=== PATIENT | male | born 1950 | race Caucasian/White ===

== ENCOUNTER → 2019-05-01 | Outpatient (CLI) | payer OTHER | LOC: M.RAD 12:29 | DX: M47.814 Spondylosis without myelopathy or radiculopathy, thoracic region (principal); J84.10 Pulmonary fibrosis, unspecified ==

== ENCOUNTER 2019-10-04 07:37 | Observation (INO) | payer OTHER ==
[~2019-10-04] VITALS: Ht 175.3 cm; Wt 118.4 kg
[2019-10-04] VITALS (17 sets, daily range): BP systolic 118–146; BP diastolic 60–75
--- NOTE | ~2019-10-04 | H ---
[address] [address] HISTORY AND PHYSICAL Name: ANIL GOMEZ Room: [address] Josep Jonas#: [id number] Admission: 10/04/19 Attend Phys: Gregg Piper MD, Discharge: 10/05/19 Date of : 52 Report #: [id number] THIS REPORT FOR: //name// cc: Don Ambrocio MD, David L. MD ~ THIS REPORT FOR: //name// Please refer to the History and Physical performed in the physician's office. By: [facility]2Medical Records Staff [facility] /JHOANA
[2019-10-04 08:52] LABS: HEMATOCRIT 40.8 % (42.0-52.0); HEMOGLOBIN 14.2 gm/dL (14.0-18.0); MCH 26.1 pg (26.0-34.0); MCHC 34.8 g/dL (28.0-37.0); RBC 5.44 mil/uL (4.50-6.00); RDW-CV 15.6 % (10.5-14.5)
[2019-10-04 09:01] LABS: APTT 25.9 Seconds (25.0-31.3); INR 1.1; PROTIME 11.6 Seconds (9.20-11.50)
[2019-10-04 09:03] LABS: ANION GAP 5 mmol/L (7-16); BUN 15 mg/dL (7-18); CALCIUM 8.5 mg/dL (8.5-10.1); CHLORIDE 97 mmol/L (98-107); CO2 31 mmol/L (21-32); CREATININE 1.1 mg/dL (0.6-1.3); GLUCOSE 190 mg/dL (70-99); POTASSIUM 4.4 mmol/L (3.5-5.1); SODIUM 133 mmol/L (136-145)
[2019-10-04 09:07] LABS: ALBUMIN 3.5 g/dL (3.4-5.0); ALKALINE PHOSPHATASE 93 U/L (46-116); CHOLESTEROL 176 mg/dL (<200); HDL CHOLESTEROL 32 mg/dL (>40); LDL CHOLESTEROL 98 mg/dL (<100); SERUM ASSESSMENT Clear; SGOT 19 U/L (15-37); SGPT 28 U/L (30-65); TC:HDL 5.5 Ratio (Not establshd); TOTAL BILIRUBIN 0.5 mg/dL (<0.1-1.0); TOTAL PROTEIN 6.6 g/dL (6.4-8.2); TRIGLYCERIDE 233 mg/dL (<150); VLDL 47 mg/dL (<40)
[2019-10-04] MEDS ORDERED: ABILIFY 2 MG2 M1 PO (09:18)
[2019-10-04] MEDS ORDERED: ASA81BEC PO (09:18)
[2019-10-04] MEDS ORDERED: ZYRTEC10 M5 PO (09:19)
[2019-10-04] MEDS ORDERED: CATAPRES0.2 MG PO (09:20)
[2019-10-04] MEDS ORDERED: DILTIAZEM ER180 M2 PO (09:21)
[2019-10-04] MEDS ORDERED: CYMBALTA60 MG PO (09:22)
[2019-10-04] MEDS ORDERED: GLUCOSAMINE &1 EACH PO (09:23)
[2019-10-04] MEDS ORDERED: HYDROCHLOROTHIA25 M1 PO (09:24)
[2019-10-04] MEDS ORDERED: GLUCOPHAGE500 MG PO (09:25)
[2019-10-04] MEDS ORDERED: LISINOPRIL40 MG PO (09:25)
[2019-10-04] MEDS ORDERED: LOPRESSOR50 PO (09:27)
[2019-10-04] MEDS ORDERED: NAPROSYN500 M1 PO (09:27)
[2019-10-04] MEDS ORDERED: NITROSTAT0.4 M1 SUBLING (09:30)
[2019-10-04] MEDS ORDERED: OMEPRAZOLE 20 M20 M1 PO (09:31)
[2019-10-04] MEDS ORDERED: VITAMIN D31250 MC1 PO (09:32)
--- NOTE | 2019-10-04 13:11 | EKG ---
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1950 Requested By: Gregg Piper Order Number: [id number] Yusra MD: Gregg Piper Measurements Intervals [place] Rate: 50 P: 38 WV: 188 QRS: -8 QRSD: 97 T: 45 QT: 452 QTc: 413 Interpretive Statements Sinus rhythm Abnormal R-wave progression, late transition Baseline wander in lead(s) II,III,aVF No previous ECG available for comparison Electronically Signed On 10-04-2019 13:11:33 CDT by Gregg Piper [email or web address] <ELECTRONICALLY SIGNED> By: Gregg Piper MD, [facility] 10/04/19 1311 0932 0932 Gregg Piper MD, [facility] /EPI
--- NOTE | 2019-10-04 14:07 | CARD ---
[address] [address] CARDIAC CATH REPORT Name: PATRICIA,LOSRINIVASAN Tavera Room: [address] Josep M.RDarrell#: [id number] Admission: 10/04/19 Attend Phys: Gregg Piper MD, Discharge: Date of : 52 Report #: [id number] THIS REPORT FOR: //name// cc: Don Ambrocio MD, David L. MD ~ APPROVED REPORT Study performed: 10/04/2019 09:17:09 Patient Details Patient Status: In-Patient Room #: 220 The patient is a 69 year-old male Event Personnel Gregg Piper Health Advocate, Kristyn Blanton RN Appliquer, Peggy Chau RTR Monitor, Audie Jewell RTR Scrub Procedures Performed Art Access - R femoral artery, Left Heart Cath w/or w/o Coronaries LHC, SANDRA Place w/wo Plasty Single LAD , PTCA Single Vessel CIRC PCISINGLE, Hemostasis w/ Angioseal Indication Unstable angina Risk Factors Hypercholesterolemia, Hypertension, Diabetes Admission/Lab Medications/Medications given during procedure Angiomax IV 18 ml, Angiomax Drip IV 41.51 ml per hr, Effient PO 60 mg, Aspirin PO 162 mg Procedure Narrative The patient was brought electively to the Cardiac Catheterization Laboratory and was prepped and draped in a sterile manner. The right femoral was infiltrated with 2% Lidocaine subcutaneous anesthesia. A 6F Hume sheath was inserted into the right femoral artery. Coronary angiography was performed using coronary diagnostic catheters. The right coronary system was accessed and visualized with a 6F 3DRC catheter. The left coronary system was accessed and visualized with a 6F JL5 catheter. The left ventricle was accessed and visualized with a 6F Pigtail catheter. Left ventricular/Aortic Valve gradient assessed via catheter pullback. Left ventriculogram was performed in CHAUHAN projection. Pre[place] [address] CARDIAC CATH REPORT Name: ANIL GOMEZ Room: [address]#: [id number] Admission: 10/04/19 Attend Phys: Gregg Piper MD, Discharge: Date of : 52 Report #: [id number] was performed . Closure device was deployed with a 6 Fr Angioseal STS. The patient tolerated the procedure well and there were no complications associated with the procedure. There was no hematoma. Intraoperative Conscious Sedation Sedation start time: 10:00 Case end Time: 11:51 Fentanyl 50 mcg Versed 2 mg Fluoro Time: 39.4 minutes Dose: DAP 014238 cGycm2 5501 mGy Contrast Type and Amount: Visipaque 575 ml Coronary Angiography The patient's coronary anatomy is left dominant. Diagnostic Cath Left Main 0% narrowing LAD 75% mid LAD stenosis Circumflex Large dominant vessel with 30% mid vessel narrowing widely patent mid circumflex stent and 95% distal circumflex stenosis Right Coronary Small nondominant vessel with 50% mid vessel narrowing Left Ventriculography The left ventricle is normal in size with contractility. The left ventricular ejection fraction is estimated to be 60%. Left ventricular wall motion abnormalities are not present. There is no mitral insufficiency. Hemodynamics The aortic pressure is 143/71 mmHg with a mean of 99 mmHg. The left ventricular pressure is 142/6 mmHg with a mean of mmHg. The left ventricular end diastolic pressure is 35 mmHg. There was no gradient across the aortic valve upon pullback. PCI Technique Lesion Anticoagulation was achieved with Angiomax. Patient was preloaded with Angiomax IV 18 ml. Percutaneous coronary intervention was performed on the distal circumflex artery segment. The lesion stenosis prior to intervention was 95% with EDOUARD 3 flow. A 6F JL 5.0 Guide Catheter was used to engage the lm ostium. A BMW 190cm Interventional Guidewire was used to cross the [place] [address] CARDIAC CATH REPORT Name: ANIL GOMEZ Room: [address] M.R.#: [id number] Admission: 10/04/19 Attend Phys: Gregg Piper MD, Discharge: Date of : 52 Report #: [id number] A Balloon catheter Mini Trek RX 2.0 X 8 was inserted and inflated up to 12.00atm for 9seconds. Additional Inflation: 16.00atm for 10seconds. Additional Inflation: 16.00atm for 12seconds. Final angiography reveals 20 % stenosis with EDOUARD flow. COMMENTS The PCI to the circumflex was technically complex by virtue of proximal vessel tortuosity, poor guide support, and calcified distal circumflex lesion. I was ultimately able to perform distal circumflex intervention with the use of a kendall wire PCI Technique Lesion 2 Percutaneous Coronary Intervention was performed on the mid left anterior descending artery segment. Patient was preloaded with Angiomax IV 18 ml. The lesion stenosis prior to intervention was 75% with EDOUARD 2 flow. A 6F JL 5.0 Guide Catheter was used to engage the lm ostium. A BMW 190cm Interventional Guidewire was used to cross the lesion. Stent Deployment A drug-eluting stent [place] RX Stent 2.5X12mm was inserted and inflated up to 15.00atm for 13seconds. Additional Inflation: 15.00atm for 10seconds. Final angiography reveals 0 % stenosis with EDOUARD 3 flow. Conclusion 1. Significant coronary artery disease characterized by the following: A 75% mid LAD stenosis B dominant circumflex with 30% mid vessel narrowing and 95% calcified distal stenosis C small nondominant right coronary with 50% mid vessel narrowing 2. Normal left ventricular systolic function, estimated ejection fraction 60% 3. Severe elevation of left ventricular end-diastolic pressure at rest 4. Successful PCI with deployment of drug[place] [address] CARDIAC CATH REPORT Name: ANIL GOMEZ Room: [address] Josep Jonas#: [id number] Admission: 10/04/19 Attend Phys: Gregg Piper MD, Discharge: Date of : 52 Report #: [id number] 75% mid LAD stenosis with 0% residual narrowing and EDOUARD-3 flow to the distal vessel 5. Successful PTCA at the site of 95% distal circumflex stenosis with 20% residual narrowing and EDOUARD-3 flow to the distal vessel Recommendations Cardiac Risk Reduction Program Aggressive Medical Therapy Medications Administered Aspirin (any) Prasugrel Diagnostic Cath Approved by: Gregg Piper MD Date/Time: 10/04/2019 14:05:50 <ELECTRONICALLY SIGNED> By: Gregg Piper MD, [facility] 10/04/19 1407 1407 1407Gregg Piper MD, FACC /INF
--- NOTE | 2019-10-04 15:18 | EKG ---
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1950 Requested By: Gregg Piper Order Number: [id number] Yusra MD: Gregg Piper Measurements Intervals [place] Rate: 51 P: 44 GA: 182 QRS: -15 QRSD: 95 T: 66 QT: 465 QTc: 429 Interpretive Statements Sinus rhythm Borderline left axis deviation Abnormal R-wave progression, late transition Compared to ECG 10/04/2019 09:32:52 No significant changes Electronically Signed On 10-04-2019 15:18:22 CDT by Gregg Piper [email or web address] <ELECTRONICALLY SIGNED> By: Gregg Piper MD, [facility] 10/04/19 1518 1417 1417 Gregg Piper MD, [facility] /EPI
--- NOTE | 2019-10-04 18:46 | NUR ---
PT A&OX4 VSS. PT ADMITTED TO FLOOR FROM FLOOR STEWARD/STEWARDESS, ARRIVED ON UNIT APPROX 1218. HX OF STENT PLACEMENT IN 2014. PT ARRIVES WITH GAUZE/TRANSPARENT DRESSING TO R GROIN. NO REDNESS/SWELLING/DRAINAGE NOTED. IV TO RAC WITH NS RUNNING AT 75ML/HOUR. DRESSING C/D/I, NO REDNESS/SWELLING NOTED. PT SINUS YISSEL ON MONITOR. APPROX 1515, PHYSICIAN AT BEDSIDE AND HOB ELEVATED BY PHYSICIAN. PT IS ACCUCHECK ON CARB CONTROL DIET, NO INSULIN INDICATED. PT V/S MONITORED DIRECTED. PT UP TO RESTROOM SBA GAIT STEADY THIS EVENING. PT RESTS IN ROOM WITH CALL LIGHT IN REACH, WILL CONTINUE TO MONITOR.
[2019-10-05] VITALS: BP 136/64
[2019-10-05 04:00] VITALS: BP 125/56
[2019-10-05 05:22] LABS: HEMATOCRIT 37.1 % (42.0-52.0); HEMOGLOBIN 13.4 gm/dL (14.0-18.0); MCH 26.7 pg (26.0-34.0); MCV 74.1 fL (80.0-100.0); MPV 7.3 fl. (7.2-11.1); RDW-CV 15.4 % (10.5-14.5); WBC 9.1 thou/uL (4.0-11.0)
[2019-10-05 05:41] LABS: ALBUMIN 3.2 g/dL (3.4-5.0); CALCIUM 8.2 mg/dL (8.5-10.1); CREATININE 0.9 mg/dL (0.6-1.3); TOTAL BILIRUBIN 0.7 mg/dL (<0.1-1.0); TOTAL PROTEIN 6.2 g/dL (6.4-8.2); TROPONIN-I LEVEL 0.4 ng/mL (<0.06)
[2019-10-05 08:00] VITALS: BP 121/75
[2019-10-05 10:31] VITALS: BP 121/75
[2019-10-05] MEDS ORDERED: EFFIENT10 MG PO (11:17)
[2019-10-05] MEDS ORDERED: LORATIDINE 10 M10 M1 PO (11:18)
--- NOTE | 2019-10-05 18:09 | NUR ---
ORDER RECEIVED TO DISCHAGR4 PATIENT HOME TO SELF CARE WITH SPOUSE. MED REC, MEDICATION EDUCATION, STROKE EDUCATION, AND NEED FOR FOLLOW UP APPOINTMENTSCOVERED WITH PAITNET AND STATED UNDERSTOOD. PATIENT EDUCATED REGARDING LIFTING AND ACTIVITY LIMITATION R/T CARDIAC CATH PROCEDURE. VSS AND PATIENT IN NO APPARNET SIGNS OF DISTRESS. RIGHT CARDIAC CATH GROIN SITE CLEAN DRY INTACT WITH NO S/S OF HEMATOMA. DC TIME OF 12:10.
--- NOTE | 2019-10-07 11:03 | EKG ---
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
--- NOTE | 2019-10-07 12:24 | D ---
[address] [address] DISCHARGE SUMMARY Name: ANIL GOMEZ Ayse Room: [address] Josep Jonas#: [id number] Admission: 10/04/19 Attend Phys: Gregg Piper MD, Discharge: 10/05/19 Date of : 52 Report #: [id number] THIS REPORT FOR: //name// cc: Don Ambrocio MD, David L. MD ~ THIS REPORT FOR: //name// CC: Don Piper DATE OF SERVICE: 10/05/2019 FINAL DISCHARGE DIAGNOSES: 1. Unstable angina. 2. Dyspnea on exertion. 3. Coronary artery disease. 4. Status post PCI with stenting of the mid LAD and angioplasty of the distal circumflex. 5. Hypertension. 6. Type 2 diabetes. 7. Hyperlipidemia. 8. Exogenous obesity. PROCEDURES: 10/04/2019 -- left heart catheterization, left ventriculography, selective coronary arteriography and percutaneous coronary intervention with stenting of the mid LAD and angioplasty of the distal circumflex. HOSPITAL COURSE: The patient is a very pleasant 69-year-old male with coronary artery disease, status post remote stenting of the circumflex. Recently, he has noted recrudescence of symptoms typical of his prior angina with marked dyspnea on minimal exertion such as tying his shoes or walking short distances. This was present in the past before his prior PCI. He has underlying hypertension, diabetes and hyperlipidemia as well as exogenous obesity. In this context, I performed cardiac catheterization on 10/04/2019 which revealed a 90% distal circumflex stenosis and 75% tubular mid LAD stenosis. I performed stenting of the mid LAD with 0% residual narrowing and angioplasty of the smaller distal circumflex with 20% residual narrowing. The patient did well post-procedurally. There was no chest pain post-procedurally. Troponin leonard up to 0.40 and insignificant post-procedural elevation. LABORATORY DATA: Additional lab revealed sodium 135, potassium 4.0, BUN 11, creatinine 0.9, glucose 152. Hemoglobin 13.4, white blood cell count 9100 with 310,000 [place] [address] DISCHARGE SUMMARY Name: ANIL GOMEZ Ayse Room: [address] Sumi#: [id number] Admission: 10/04/19 Attend Phys: Gregg Piper MD, Discharge: 10/05/19 Date of : 52 Report #: [id number] He ambulated in the hallways without difficulty and there was good hemostasis at the right femoral site of catheterization. DISCHARGE MEDICATIONS: He was discharged to home on the following medications: Aripiprazole 2 mg daily, aspirin 81 mg b.i.d., cetirizine 10 mg daily, cholecalciferol or vitamin D3 5000 units daily, clonidine 0.2 mg t.i.d., diltiazem extended release 180 mg b.i.d., duloxetine or Cymbalta 60 mg b.i.d., glucosamine/chondroitin 2 capsules daily, hydrochlorothiazide 25 mg daily, lisinopril 40 mg daily, loratadine 10 mg daily, metformin 500 mg t.i.d. to be resumed on 10/06/2019, metoprolol tartrate 25 mg b.i.d., Naprosyn 500 mg t.i.d. p.r.n., omeprazole 20 mg daily, prasugrel 10 mg daily with a 60 mg periprocedural loading dose having been given, and p.r.n. sublingual nitroglycerin. I will plan to see the patient in followup in 3-5 weeks in our office. Therefore, the patient is discharged to home in stable condition on the aforementioned medications with followup as described above. <ELECTRONICALLY SIGNED> By: Gregg Piper MD, [facility] 10/07/19 1224 0924 0934Gregg Piper MD, FAC /nt
== END 2019-10-05 12:40 | disposition home or self-care (01) ==
LOC: M.CL 07:37 → M.TBA-CV 10:41 → M.TBA-ER 10:41 → M.TBA-CV 12:11 → M.2W 12:20
PROVIDERS: ADMIT Internal Medicine; ATTEND Internal Medicine
DX: I25.110 Atherosclerotic heart disease of native coronary artery with unstable angina pectoris (principal); I10 Essential (primary) hypertension; E11.9 Type 2 diabetes mellitus without complications; E78.5 Hyperlipidemia, unspecified; E66.09 Other obesity due to excess calories

== ENCOUNTER 2020-09-21 20:55 | Emergency (ER) | payer OTHER ==
[~2020-09-21] VITALS: Ht 175.3 cm; Wt 118.8 kg
[~2020-09-21 20:55] MED LIST: ABILIFY 2 MG2 M1 PO; ASA81BEC PO; CATAPRES0.2 MG PO; CYMBALTA60 MG PO; DILTIAZEM ER180 M2 PO; EFFIENT10 MG PO; GLUCOPHAGE500 MG PO; GLUCOSAMINE &1 EACH PO; HYDROCHLOROTHIA25 M1 PO; LISINOPRIL40 MG PO; LOPRESSOR50 PO; LORATIDINE 10 M10 M1 PO; NAPROSYN500 M1 PO; NITROSTAT0.4 M1 SUBLING; OMEPRAZOLE 20 M20 M1 PO; VITAMIN D31250 MC1 PO; ZYRTEC10 M5 PO
[2020-09-21 21:21] VITALS: BP 181/87
[2020-09-21] MEDS ORDERED: ZETIA10 MG PO (21:25)
[2020-09-21] MEDS ORDERED: IRON18 M1 PO (21:27)
[2020-09-21] MEDS ORDERED: NEURONTIN100 MG PO (21:27)
[2020-09-21] MEDS ORDERED: NITROSTAT0.4 M1 SUBLING (21:28)
[2020-09-21] MEDS ORDERED: REPATHA SY140 MG/1 M SUBQ (21:29)
== END 2020-09-21 22:42 | disposition home or self-care (01) ==
LOC: M.ERS 20:55
DX: S51.812A Laceration without foreign body of left forearm, initial encounter (principal); E11.9 Type 2 diabetes mellitus without complications; Z91.030 Bee allergy status; Z88.8 Allergy status to other drugs, medicaments and biological substances; Z79.4 Long term (current) use of insulin; Z79.82 Long term (current) use of aspirin; Z79.84 Long term (current) use of oral hypoglycemic drugs; E78.5 Hyperlipidemia, unspecified; Z90.89 Acquired absence of other organs; W01.0XXA Fall on same level from slipping, tripping and stumbling without subsequent striking against object, initial encounter; Y93.89 Activity, other specified; Y92.89 Other specified places as the place of occurrence of the external cause; Y99.8 Other external cause status